=== PATIENT | male | born 2005 | race Caucasian/White ===

== ENCOUNTER 2024-04-24 18:59 | Emergency (ER) | payer BC, OTHER ==
[~2024-04-24] VITALS: Ht 182.9 cm; Wt 72.7 kg
[~2024-04-24 18:59] MED LIST: ZOFRAN ODT4 MG PO
[2024-04-24 20:48] VITALS: BP 109/73; PULSE 55; TEMP 98.1
== END 2024-04-24 20:48 | disposition home or self-care (01) ==
LOC: COL.ER 18:59
DX: S83.91XA Sprain of unspecified site of right knee, initial encounter (principal); X50.1XXA Overexertion from prolonged static or awkward postures, initial encounter; Y93.71 Activity, boxing
CPT/HCPCS: L1846